=== PATIENT | female | born 1980 | race Caucasian/White ===

== ENCOUNTER 2018-04-14 14:50 | Emergency (ER) | END 2018-04-14 17:20 | disposition home or self-care (01) ==

== ENCOUNTER 2018-11-09 22:48 | Emergency (ER) | payer SELFPAY ==
[~2018-11-09] VITALS: Ht 165.1 cm; Wt 87.0 kg
[~2018-11-09 22:48] MED LIST: DOCU-144 PO; FER325 PO; NAXIUM
[2018-11-09 23:01] VITALS: BP 128/74; PULSE 91; RESP 20; Ht 165.1 cm; Wt 87.0 kg
== END 2018-11-10 01:04 | disposition left against medical advice (07) ==
LOC: FTE 22:48
DX: Z53.21 Procedure and treatment not carried out due to patient leaving prior to being seen by health care provider (principal)